=== PATIENT | female | born 1965 | race Hispanic/Latino ===

== ENCOUNTER 2019-10-02 15:56 | Emergency (ER) | payer SELFPAY ==
[2019-10-02] MEDS ORDERED: ACETAMINOPHEN 325 MG TAB ONE (16:41)
== END 2019-10-02 18:27 | disposition home or self-care (01) ==
LOC: EDH 15:56
DX: S02.2XXA Fracture of nasal bones, initial encounter for closed fracture (principal); S00.12XA Contusion of left eyelid and periocular area, initial encounter; S00.11XA Contusion of right eyelid and periocular area, initial encounter; M54.2 Cervicalgia; M25.511 Pain in right shoulder; I10 Essential (primary) hypertension; Z90.710 Acquired absence of both cervix and uterus; Z86.718 Personal history of other venous thrombosis and embolism; Y00.XXXA Assault by blunt object, initial encounter; Y93.89 Activity, other specified; Y92.89 Other specified places as the place of occurrence of the external cause; Y99.8 Other external cause status
CPT/HCPCS: 70450; 70486; 72125; 73030

== ENCOUNTER 2024-05-08 16:24 | Emergency (ER) | payer OTHER, BC ==
[~2024-05-08] VITALS: Ht 167.6 cm; Wt 117.5 kg
[2024-05-08] MEDS ORDERED: METH100054 PO (18:33)
[2024-05-08] MEDS ORDERED: NAPR-1192 PO (18:33)
[2024-05-08] MEDS: METHOCARBAMOL 500 MG TABLET PO SCH (18:57)
[2024-05-08 19:00] VITALS: BP 135/82; PULSE 70; RESP 20; O2SAT 96
== END 2024-05-08 19:03 | disposition home or self-care (01) ==
LOC: EDH 16:24
DX: M54.2 Cervicalgia (principal); E11.9 Type 2 diabetes mellitus without complications; I10 Essential (primary) hypertension; Z79.899 Other long term (current) drug therapy; Z90.49 Acquired absence of other specified parts of digestive tract; Z90.710 Acquired absence of both cervix and uterus; Z90.89 Acquired absence of other organs; V89.2XXA Person injured in unspecified motor-vehicle accident, traffic, initial encounter; Y93.89 Activity, other specified; Y92.488 Other paved roadways as the place of occurrence of the external cause; Y99.8 Other external cause status
CPT/HCPCS: 72125